=== PATIENT | female | born 1985 | race Caucasian/White ===

== ENCOUNTER 2025-01-16 07:00 | Day surgery (SDC) | payer OTHER ==
[2025-01-16] MEDS ORDERED: fentaNYL CITRATE 50 MCG/ML AMPUL IV PUSH ONE (11:30)
[2025-01-16] MEDS ORDERED: DIPHENHYDRAMINE HCL 50 MG/ML VIAL 1ML IV ONE (11:30)
[2025-01-16] MEDS ORDERED: MIDAZOLAM HCL 2 MG/2 ML VIAL IV ONE (11:30)
== END 2025-01-16 13:00 | disposition home or self-care (01) ==
LOC: AMB-ENDOS 07:00
PROVIDERS: ATTEND Internal Medicine
DX: D12.5 Benign neoplasm of sigmoid colon (principal); K63.5 Polyp of colon; Z86.0101 Personal history of adenomatous and serrated colon polyps